=== PATIENT | male | born 1965 | race Hispanic/Latino ===

== ENCOUNTER → 2025-01-01 | Day surgery (SDC) | payer BC ==
[~2025-01-01] MED LIST: ASPIRIN81 MG PO; EPINEPHRINE HCL 1:1000 1ML 1 MG/ML AMP ONE; GLIMEPIRIDE2 MG PO; LIDOCAINE HCL 2% LOCAL INJ 5 ML SDV VIAL INJ ONE; LIPITOR10 MG PO; LOSARTAN POTAS100 MG PO; METOPROLOL SUCC25 MG PO; MIDAZOLAM HCL 2 MG/2 ML VIAL ONE; NAPROXEN250 MG PO; PROPOFOL IV EMULSION 10 MG/ML 20 ML VIAL ONE
[2025-01-01] MEDS: LACTATED RINGER'S 1,000 ML ONE (10:04)
[2025-01-01 12:53] VITALS: TEMP 97
[2025-01-01 13:15] VITALS: BP 131/84; PULSE 69; RESP 16; O2SAT 96
== END | disposition home or self-care (01) ==
LOC: OR 09:14
PROVIDERS: ATTEND Internal Medicine Gastroenterology
DX: Z12.11 Encounter for screening for malignant neoplasm of colon (principal); D12.2 Benign neoplasm of ascending colon; D12.3 Benign neoplasm of transverse colon; D12.4 Benign neoplasm of descending colon; K57.30 Diverticulosis of large intestine without perforation or abscess without bleeding; K64.8 Other hemorrhoids; E11.9 Type 2 diabetes mellitus without complications; I10 Essential (primary) hypertension; I49.3 Ventricular premature depolarization; E78.5 Hyperlipidemia, unspecified; E66.9 Obesity, unspecified; Z01.810 Encounter for preprocedural cardiovascular examination; Z79.82 Long term (current) use of aspirin; Z79.84 Long term (current) use of oral hypoglycemic drugs; Z79.1 Long term (current) use of non-steroidal anti-inflammatories (NSAID); Z68.36 Body mass index [BMI] 36.0-36.9, adult
CPT/HCPCS: 36415; 45381; 45384; 45385; 82948; 93005; J0171; J2003; J2250; J2704; J7121; 45378

== ENCOUNTER → 2025-03-23 | Day surgery (SDC) | payer BC ==
[~2025-03-23] MED LIST changes: +ACETAMINOPHEN 1000 MG/100 ML 100 ML IV ONE; +ACETAMINOPHEN 1000 MG/100 ML IV PRN; +AMLODIPINE BESYL5 MG PO; +ASPIRIN 325 MG TAB PO SCH; +CELECOXIB 100 MG CAP PO SCH; +DIPHENHYDRAMINE HCL INJ 50 MG/ML VIAL IV PRN; +DOCUSATE SODIUM 100 MG CAP PO PRN; -EPINEPHRINE HCL 1:1000 1ML 1 MG/ML AMP ONE; +FENTANYL CITRATE/PF 100MCG/2 ML INJ ONE; +HYDROCODONE/APAP 5MG-325MG TAB PO PRN; +HYDROCODONE/APAP 7.5MG-325MG 1 EA TAB ONE; +HYDROCODONE/APAP 7.5MG-325MG 1 EA TAB PO PRN; +ONDANSETRON HCL INJ 2MG/ML 2ML 2 MG/ML VIAL IV PRN; +ONDANSETRON HCL INJ 2MG/ML 2ML 2 MG/ML VIAL ONE; +ROPIVACAINE/EPI/CLONIDINE/KET 50 ML SYRINGE INJ ONE; +SEVOFLURANE INHAL SOLN 250 ML PEN BTL ONE; +SODIUM CHLORIDE 0.9% 1000ML 1,000 ML IV SCH; +SODIUM CHLORIDE 0.9% 200 ML ONE
[2025-03-23] MEDS: LACTATED RINGER'S 1,000 ML ONE (05:50)
[2025-03-23] MEDS: GABAPENTIN 300 MG CAP ONE (05:50)
[2025-03-23] MEDS: CELECOXIB 200 MG CAP ONE (05:50)
[2025-03-23] MEDS: CEFAZOLIN SODIUM 2 GM ONE (05:51)
[2025-03-23] MEDS: DEXAMETHASONE SOD PHOS 10 MG/1 ML VIAL ONE (05:51)
[2025-03-23] MEDS: HYDROCODONE/APAP 7.5MG-325MG 1 EA TAB PO ONE (12:00)
[2025-03-23 14:00] VITALS: BP 130/75; PULSE 70; RESP 16; O2SAT 97
== END | disposition home health service (06) ==
LOC: OR 05:10
PROVIDERS: ATTEND Specialist
DX: M17.12 Unilateral primary osteoarthritis, left knee (principal); E11.9 Type 2 diabetes mellitus without complications; I10 Essential (primary) hypertension; E78.5 Hyperlipidemia, unspecified; Z72.0 Tobacco use; Z79.82 Long term (current) use of aspirin; Z79.84 Long term (current) use of oral hypoglycemic drugs; Z79.1 Long term (current) use of non-steroidal anti-inflammatories (NSAID); Z79.899 Other long term (current) drug therapy; Z68.36 Body mass index [BMI] 36.0-36.9, adult
CPT/HCPCS: 27447; 36415; 73560; 82948; 86850; 86900; 97110; 97116; 97161; C1713 ×2; C1776 ×3; J0131; J1100; J2003; J2250; J2405; J2704; J3010; J7050; J7121